=== PATIENT | female | born 1995 | race Caucasian/White ===

== ENCOUNTER 2017-07-01 07:12 | Emergency (ER) | payer OTHER ==
[2017-07-01 07:40] VITALS: BP 106/63
--- NOTE | 2017-07-01 17:29 | UC ---
Michele Kiser Angela, scribed for Kyrie Ponce MD on 07/01/17 at 0723 . Abdominal Pain Female HPI - HPI Summary HPI Summary: This pt is a 21 y/o female presenting to [facility] c/o lower abd pain that began at approximately 05:30 this morning. Pt notes associated symptoms of nausea and vomiting. Denies diarrhea. Pt states she had 3 episodes of vomiting, described as only bile. She rates her pain 5 to 6 out of 10 in severity. Pt describes her pain as constant and nonradiating. She denies urinary tract infection symptoms. Pt has never had this pain before. LMP: 1 week ago. - History of Current Complaint Stated Complaint: VOMITTING,ABD PAIN Time Seen by Provider: 07/01/17 07:19 Hx Obtained From: Patient Onset/Duration: Lasting Hours, Still Present Severity Currently: Moderate Pain Intensity: 6 Pain Scale Used: 0-10 Numeric Location: Other - lower abd pain Radiates: No Aggravating Factor(s): Nothing Alleviating Factor(s): Nothing Associated Signs and Symptoms: Positive: Nausea, Vomiting. Negative: Fever, Urinary Symptoms, Diarrhea Allergies/Adverse Reactions: Allergies Allergy/AdvReac Type Severity Reaction Status Date / Time No Known Allergies Allergy Verified 07/01/17 07:35 Home Medications: Home Medications Methylphenidate HCl [Ritalin] 07/01/17 [History] buPROPion HCl [Wellbutrin Sr] 07/01/17 [History] PMH/Surg Hx/FS Hx/Imm Hx Other Endocrine History: DENIES: diabetes Other Cardiovascular History: DENIES: HTN Psychological History: Depression - Surgical History Surgical History: None - Family History Known Family History: Negative: Cardiac Disease, Hypertension, Diabetes - Social History Alcohol Use: Occasionally Substance Use Type: None Smoking Status (MU): Never Smoked Tobacco Review of Systems Constitutional: Negative Skin: Negative Eyes: Negative ENT: Negative Respiratory: Negative Cardiovascular: Negative Gastrointestinal: Abdominal Pain, Vomiting, Nausea, Other - NEG: diarrhea Genitourinary: Negative Motor: Negative Neurovascular: Negative Musculoskeletal: Negative Neurological: Negative Psychological: Negative All Other Systems Reviewed And Are Negative: Yes Physical Exam - Summary Physical Exam Summary: VITAL SIGNS: Reviewed. GENERAL: Patient is a well-developed and nourished female who is lying comfortable in the stretcher. Patient is not in any acute respiratory distress. HEAD AND FACE: Normocephalic EYES: PERRLA, EOMI x 2. EARS: Hearing grossly intact. MOUTH: Oropharynx within normal limits. NECK: Supple, trachea is midline, no adenopathy, no JVD, no carotid bruit. CHEST: Symmetric, no tenderness at palpation LUNGS: Clear to auscultation bilaterally. No wheezing or crackles. CVS: Regular rate and rhythm, S1 and S2 present, no murmurs or gallops appreciated. ABDOMEN: Soft. Periumbilical tenderness. Right lower quadrant tenderness. No rebound or guarding. Bowel sounds are normal. No abdominal abnormal pulsations. EXTREMITIES: Full ROM in all major joints, no edema, no cyanosis or clubbing. NEURO: Alert and oriented x 3. No acute neurological deficits. Speech is normal and follows commands. SKIN: Dry and warm Triage Information Reviewed: Yes Vital Signs Reviewed: Yes Abd Pain Female Course/Dx - Course Course Of Treatment: This pt is a 21 y/o female presenting to [facility] c/o lower abd pain that began at approximately 05:30 this morning. Pt notes associated symptoms of nausea and vomiting. Denies diarrhea. Pt states she had 3 episodes of vomiting, described as only bile. She rates her pain 5 to 6 out of 10 in severity. Pt describes her pain as constant and nonradiating. She denies urinary tract infection symptoms. Pt has never had this pain before. LMP: 1 week ago. Since the pt is having periumbilical and RLQ pain the differential diagnosis will include constipation, appendicitis, diverticulitis, ovarian cyst. I believe the pt will need an abdomen/pelvis CT in order to rule out pathology. Therefore she will be transferred to the ED for further work up and management. She was offered an ambulance but she declines ambulance and states she will go by private car with her friend. All questions were answered to patient satisfaction. Pt will be discharged to go immediately to the ED. Pt is hemodynamically stable, alert and oriented x3. - Differential Dx/Diagnosis Provider Diagnoses: Abdominal pain Discharge - Sign-Out/Discharge Documenting (check all that apply): Discharge - discharge to home - Discharge Plan Condition: Stable Disposition: HOME Patient Education Materials: Acute Abdominal Pain (DC) Referrals: [facility] [place] [facility] [Outside] No Primary Care Phys,NOPCP [Primary Care Provider] - Additional Instructions: Patient will be discharged to ED for further assessment. Declined ambulance The documentation as recorded by the Michele camarillo Angela accurately reflects the service I personally performed and the decisions made by me, Kyrie Ponce MD.
== END 2017-07-01 07:40 | disposition home or self-care (01) ==
LOC: UCEAST 07:12
DX: R10.33 Periumbilical pain (principal); R10.31 Right lower quadrant pain; R11.2 Nausea with vomiting, unspecified; F32.9 Major depressive disorder, single episode, unspecified
CPT/HCPCS: 99202; G0463

== ENCOUNTER → 2017-07-01 08:03 | Emergency (ER) | payer OTHER ==
[~2017-07-01 08:03] MED LIST: Iohexol 300* (CONTRAST) 10 ML SDV IV ONE; Ketorolac INJ* 30 MG/ML 1 ML VIAL IV PUSH ONE; NS 0.9% 1000 ML* 1,000 ML IV ONE; Ondansetron INJ* 2 MG/ML VIAL IV ONE; Ondansetron INJ* 2 MG/ML VIAL ONE
--- NOTE | 2017-07-01 09:16 | ED ---
Abdominal Pain/Female - HPI Summary HPI Summary: Gender neutral patient presents with acute onset abdominal pain followed by repeated episodes of vomiting starting last night. Patient denies fever or chills, headache, URI symptoms, chest pain, shortness of breath, urinary symptoms as well as vaginal symptoms, flank pain, diarrhea. Last menstrual period one week ago. Patient does have a history of ovarian cyst however this does not feel the same. Patient reports self diagnosed lactose intolerance as they develop diarrhea with dairy products. Emma denies consuming dairy products yesterday. No new foods or beverages and no alcohol consumption over the past weekend. Denies tobacco and illicit drug use. No history of abdominal surgery and overall healthy otherwise. 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 Pain Intensity: 6 Allergies/Adverse Reactions: Allergies Allergy/AdvReac Type Severity Reaction Status Date / Time No Known Allergies Allergy Verified 07/01/17 07:35 PMH/Surg Hx/FS Hx/Imm Hx Previously Healthy: Yes Endocrine/Hematology History: Reports: Other Endocrine/Hematological Disorders - identifies is gender neutral; prefers "they", "them" Denies: Hx Thyroid Disease Cardiovascular History: Denies: Hx Aneurysm GI History: Denies: Hx Cirrhosis, Hx Crohn's Disease, Hx Diverticulosis, Hx Gall Bladder Disease, Hx Gastroesophageal Reflux Disease, Hx Gastrointestinal Bleed, Hx Hiatal Hernia, Hx Irritable Bowel, Hx Obstructive Bowel, Hx Ulcer History: Reports: Other Problems/Disorders - ovarian cyst - no residual issue Denies: Hx Kidney Infection, Hx Kidney Stones Infectious Disease History: No Infectious Disease History: Denies: Traveled Outside the [place] in Last 30 Days - Family History Known Family History: Positive: Other - Brother with lactose intolerance - Social History Occupation: Student Lives: Dormitory/Roommates Alcohol Use: Occasionally Hx Substance Use: No Substance Use Type: Reports: None Hx Tobacco Use: No Smoking Status (MU): Never Smoked Tobacco Review of Systems Constitutional: Negative Negative: Fever, Chills, Fatigue Eyes: Negative ENT: Negative Cardiovascular: Negative Respiratory: Negative Positive: Abdominal Pain, Vomiting, Nausea. Negative: Diarrhea Genitourinary: Negative Negative: burning, dysuria, discharge, frequency, flank pain, hematuria, incontinence, pain, urgency Musculoskeletal: Negative Skin: Negative Neurological: Negative Psychological: Normal All Other Systems Reviewed And Are Negative: Yes Physical Exam Triage Information Reviewed: Yes Vital Signs On Initial Exam: Initial Vitals Temp Pulse Resp BP Pulse Ox 98.7 F 81 16 116/73 98 07/01/17 08:07 07/01/17 08:07 07/01/17 08:07 07/01/17 08:07 07/01/17 08:07 Vital Signs Reviewed: Yes Appearance: Positive: Pain Distress - Patient reports 5-6 out of 10 pain at present; appears mildly fatigued, Thin Skin: Positive: Warm, Skin Color Reflects Adequate Perfusion, Dry Head/Face: Positive: Normal Head/Face Inspection Eyes: Positive: Normal, EOMI, Conjunctiva Clear - Anicteric sclera ENT: Positive: Normal ENT inspection, Hearing grossly normal, Pharynx normal - Mucosa somewhat dry Neck: Positive: Supple, Nontender, No Lymphadenopathy - No gross thyromegaly Respiratory/Lung Sounds: Positive: Clear to Auscultation, Breath Sounds Present. Negative: Rales, Rhonchi, Wheezes Cardiovascular: Positive: Normal, RRR, S1, S2. Negative: Murmur, Rub Abdomen Description: Positive: No Organomegaly, Soft, McBurney's Point Tenderness - Negative Rovsing, negative psoas and negative obturator. Negative : CVA Tenderness (R), CVA Tenderness (L), Distended, Guarding, Hernia @ Bowel Sounds: Positive: Present Pelvic Exam: Positive: Other - Deferred Musculoskeletal: Positive: Normal, Strength/ROM Intact Neurological: Positive: Normal, Sensory/Motor Intact, Alert, Oriented to Person Place, Time, CN Intact II-III Psychiatric: Positive: Normal Diagnostics - Vital Signs Vital Signs Temp Pulse Resp BP Pulse Ox 07/01/17 08:07 98.7 F 81 16 116/73 98 - Laboratory Result Diagrams: 07/01/17 09:15 07/01/17 09:15 Lab Statement: Any lab studies that have been ordered have been reviewed, and results considered in the medical decision making process. Abdominal Pain Fem Course/Dx - Course Course Of Treatment: Patient prefers external pelvic exam of possible - pelvic ultrasound with gallbladder ordered. Pelvic U/S reveals Rt 2.2cm cyst. However w/ elevated WBC and vomiting, CT ordered was carried out to r/o appendicitis. CT neg. Pt later admits she vomited w/ her ovarian cyst in the past as well from the pain. Nausea resolved w/ zofran here today. She would like to try toradol and agrees to continued NSAID therapy at home w/ heat packs. She also admits to stress and will try to work on reducing this in her lifestyle. Finally she agrees to follow-up with [facility] and [facility] for ongoing treatment and prevention of ovarian cysts. If she develops danger signs and symptoms, she will return to the emergency department. - Diagnoses Provider Diagnoses: Right ovarian cyst Discharge - Sign-Out/Discharge Documenting (check all that apply): Discharge - Discharge Plan Condition: Stable Disposition: HOME Prescriptions: Naproxen TAB* [Naprosyn 250 mg TAB*] 500 mg PO Q12HR PRN #20 tab PRN Reason: Pain Ondansetron TAB* [Zofran 4 MG Tab*] 8 mg PO Q8HR PRN #15 tab PRN Reason: Nausea Patient Education Materials: Ovarian Cyst (ED) Forms: *School Release Referrals: [facility] @ [Outside] Additional Instructions: You appear to have an ovarian cyst measuring 2.2 cm on the right ovary. This is most likely causing her pain. You may take NSAIDs (naproxen was sent to your pharmacy) along with using heat packs or hot baths pain relief. You were also given nausea medicine in the event that this returns. Stay hydrated by drinking water, Gatorade, soup broth's, etc. You may also work to reduce stress in her lifestyle. Follow up with [facility] and [facility] to discuss further treatment options as needed and prevention options including but not limited to oral control hormones. Call today to schedule an appointment. *If you develop return of pain that is not well-controlled with recommendations provided, return of vomiting despite Zofran, fever, difficulty urinating or moving her bowels, return to the emergency department. - Billing Disposition and Condition Condition: STABLE Disposition: HOME
[2017-07-01 09:24] LABS: ABS Basophils 0 10^3/ul (0-0.2); ABS Eosinophils 0 10^3/ul (0-0.6); ABS Lymphocytes 1.1 10^3/ul (1.0-4.8); ABS Monocytes 0.7 10^3/ul (0-0.8); ABS Nucleated RBC 0 10^3/ul; Eosinophil % 0.2 % (0-6); Hematocrit 39 % (35-47); Hemoglobin 13.1 g/dl (12.0-16.0); Lymphocyte % 8.3 % (25-47); Mean Corpuscular HGB Conc 34 g/dl (31-36); Mean Corpuscular Hemoglobin 30 pg (27-31); Mean Corpuscular Volume 88 fL (80-97); Mean Platelet Volume 9.6 um3 (7.4-10.4); Nucleated Red Blood Cells % 0; Platelet Count 190 10^3/ul (150-450); Red Cell Distribution Width 13 % (10.5-15); White Blood Count 12.8 10^3/ul (3.5-10.8)
[2017-07-01 09:39] LABS: Urine Appearance Clear; Urine Blood Negative (Negative); Urine Color Yellow; Urine Ketones Negative (Negative); Urine Protein Negative (Negative); Urine Specific Gravity 1.023 (1.010-1.030); Urine Urobilinogen Negative (Negative)
[2017-07-01 09:42] LABS: EGFR Non-African American 92.8 (>60)
--- NOTE | 2017-07-01 11:13 | RAD ---
INDICATION: RIGHT lower quadrant pain. Vomiting. COMPARISON: No relevant prior exams available on the [facility] PACS for comparison. TECHNIQUE: Ultrasound of the right lower quadrant. REPORT AND IMPRESSION: Nondiagnostic exam due to nonvisualization of the appendix. No visualized RIGHT lower quadrant free fluid or adenopathy. Normal peristalsing bowel loops visualized. Correlate with clinical assessment and consider CT for further evaluation if deemed appropriate.
--- NOTE | 2017-07-01 11:19 | RAD ---
INDICATION: Right lower quadrant pain COMPARISON: Appendiceal sonogram same date TECHNIQUE: Longitudinal and transverse transabdominal scans of the pelvis were obtained. FINDINGS: Uterus: The uterus is normal in size. There are no focal masses. The uterus measures 7.8 x 3.5 x 6.0 cm. Endometrial thickness: The endometrial thickness is measured at 0.6 cm. . Free fluid: There is a small amount of free fluid in the cul-de-sac. Ovaries: The ovaries are normal in size. The right ovary measures 3.3 x 2.1 x 2.9 cm. The left ovary measures 3.6 x 1.6 x 2.6 cm. There is a 2.2 x 1.6 x 2.0 cm right ovarian cyst consistent with a functional cyst.. Doppler interrogation demonstrates flow to each ovary. Other: None IMPRESSION: 2.2 CM RIGHT OVARIAN CYST. SMALL AMOUNT OF FREE FLUID LIKELY REPRESENTING PHYSIOLOGIC FREE FLUID.
--- NOTE | 2017-07-01 11:50 | RAD ---
CLINICAL HISTORY: Right lower quadrant pain COMPARISON: Ultrasound dated July 01, 2017 TECHNIQUE: Multiple contiguous axial CT scans were obtained of the abdomen and pelvis after the administration of intravenous contrast. Coronal and sagittal multiplanar reformations are submitted for review. Oral contrast was administered. Delayed images were obtained through the abdomen and pelvis. FINDINGS: LUNG BASES: The lung bases are clear. LIVER: The liver is normal in shape, size, contour, and attenuation. BILE DUCTS: There is no intrahepatic or extrahepatic biliary dilatation. GALLBLADDER: The gallbladder is normal, without pericholecystic inflammatory change. PANCREAS: The pancreas is normal, without mass or ductal dilatation. SPLEEN: Normal in size and appearance. UPPER GI TRACT: Evaluation of the gastrointestinal tract is limited by incomplete gastric distention. The upper GI tract is unremarkable. SMALL BOWEL AND MESENTERY: The small bowel is normal in contour, course, and caliber. There is no obstruction or dilatation. COLON: The colon is normal in contour, course, caliber. There is no pericolonic inflammatory change. There is a tubular, vermiform, hollow viscus that is blind ending, and originates from the cecum, consistent with a normal appendix. There is no periappendiceal inflammatory change. The appendix is retrocecal. This is best seen on coronal images 18 through 35 ADRENALS: Normal bilaterally. KIDNEYS: The kidneys are normal in shape, size, contour, and axis. There is no hydronephrosis or nephrolithiasis. BLADDER: The bladder is smooth in contour. PELVIC ORGANS: The uterus and adnexa are grossly normal for technique. The right ovarian cyst noted on sonography is not well visualized on the current examination. AORTA: The aorta is normal. IVC: Unremarkable LYMPH NODES: There is no lymphadenopathy by size criteria. ABDOMINAL WALL: There is no evidence for abdominal wall hernia. BONES AND SOFT TISSUES: The bones and soft tissues are unremarkable. OTHER: None IMPRESSION: NORMAL APPENDIX. NO ACUTE CT PATHOLOGY OF THE VISUALIZED ABDOMEN OR PELVIS.
[2017-07-01 14:24] VITALS: BP 107/59
== END | disposition home or self-care (01) ==
LOC: MERGE 08:03 → ED 08:03
DX: N83.201 Unspecified ovarian cyst, right side (principal); R10.84 Generalized abdominal pain
CPT/HCPCS: 36415; 74177; 76705; 76856; 80053; 81003; 82150; 83605; 83690; 83735; 84702; 85025; 86140; 96374; 96375; 99284; J2405; Q9967